=== PATIENT | male | born 1980 | race Caucasian/White ===

== ENCOUNTER → 2020-05-18 | Emergency (ER) | payer MEDICAID ==
[~2020-05-18] VITALS: Ht 177.8 cm; Wt 78.7 kg
[~2020-05-18] MED LIST: CLINDAMYCIN 300 MG CAPSULE PO ONE; DIPH,PERTUSS(ACELL),TET VAC/PF 0.5 ML IM-VACC ONE; LIDOCAINE 1%, 10ML INFIL ONE; LIDOCAINE-MPF 1%, 5ML ONE
[2020-05-18 23:05] VITALS: BP 148/79
== END ==
LOC: ED 21:27
DX: L02.414 Cutaneous abscess of left upper limb (principal); F17.210 Nicotine dependence, cigarettes, uncomplicated; R00.0 Tachycardia, unspecified
CPT/HCPCS: 10060; 99283; 99406